=== PATIENT | female | born 1985 | race Caucasian/White ===

== ENCOUNTER 2022-06-03 03:55 | Emergency (ER) | payer SELFPAY ==
[~2022-06-03] VITALS: Ht 165.1 cm; Wt 77.1 kg
[2022-06-03 03:58] VITALS: BP 144/98
--- NOTE | 2022-06-03 04:02 | NUR ---
Dr. Cheng examining patient.
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
--- NOTE | 2022-06-03 04:09 | NUR ---
[place] [employer] at bedside.
[2022-06-03] MEDS ORDERED: KETOROLAC 60 MG/2 ML VIAL IM ONE (04:10)
--- NOTE | 2022-06-03 04:18 | NUR ---
Patient taken to CT scan via wheel chair.
--- NOTE | 2022-06-03 04:35 | NUR ---
PT BACK FROM CT
--- NOTE | 2022-06-03 04:37 | NUR ---
PT SISTER YONIS [phone]
[2022-06-03] MEDS ORDERED: NAPR-54 PO (04:50)
[2022-06-03 05:35] VITALS: BP 140/96
--- NOTE | 2022-06-03 05:35 | NUR ---
Patient discharged with v/s stable. Written and verbal after care instructions given and explained. Patient alert, oriented and verbalized understanding of instructions. Ambulatory with steady gait. All questions addressed prior to discharge. ID band removed. Patient advised to follow up with PMD. Rx of NAPROSYN given. Opportunity to ask questions provided and answered.
== END 2022-06-03 05:35 | disposition home or self-care (01) ==
LOC: MED 03:55
DX: S00.83XA Contusion of other part of head, initial encounter (principal); R11.0 Nausea; Z79.899 Other long term (current) drug therapy; Y04.2XXA Assault by strike against or bumped into by another person, initial encounter; Y93.89 Activity, other specified; Y92.89 Other specified places as the place of occurrence of the external cause; Y99.8 Other external cause status
CPT/HCPCS: 70450; 70486; 96372; 99284; J1885

== ENCOUNTER 2022-07-08 08:35 | Emergency (ER) | payer SELFPAY ==
[~2022-07-08] VITALS: Ht 167.6 cm; Wt 76.7 kg
[~2022-07-08 08:35] MED LIST: NAPR-54 PO
[2022-07-08 08:43] VITALS: BP 129/77
[2022-07-08 09:21] LABS: BASOPHILS % (AUTO) 0.6 % (0.0-2.0); EOSINOPHILS # (AUTO) 0.1 K/uL (0-0.4); EOSINOPHILS % (AUTO) 1.3 % (0.0-4.0); HEMATOCRIT 35.9 % (36-48); HEMOGLOBIN 12.2 g/dL (12.0-16.0); LYMPHOCYTES # (AUTO) 1.6 K/uL (2.5-16.5); LYMPHOCYTES % (AUTO) 23.6 % (20.5-51.1); MEAN CORPUSCULAR HEMOGLOBIN 28 pg (27-31); MEAN CORPUSCULAR HGB CONC 34 g/dL (33-37); MEAN CORPUSCULAR VOLUME 83.2 fL (80-94); MONOCYTES # (AUTO) 0.3 K/uL (0.8-1.0); NEUTROPHILS # (AUTO) 4.6 K/uL (1.8-7.7); NEUTROPHILS % (AUTO) 69.5 % (42.2-75.2); PLATELET COUNT (AUTO) 234 K/uL (140-450); RED BLOOD CELL COUNT(AUTO) 4.32 MIL/uL (4.20-5.40); RED CELL DISTRIBUTION WIDTH 14.4 % (11.6-13.7); WHITE BLOOD COUNT (AUTO) 6.7 K/uL (4.8-10.8)
[2022-07-08 09:21] LABS: APPEARANCE,URINE SL CLOUDY (CLEAR); BILIRUBIN,URINE NEGATIVE (NEGATIVE); BLOOD, URINE 3+ (NEGATIVE); COLOR,URINE AMBER (YELLOW); LEUKOCYTE ESTERASE ,URINE TRACE (NEGATIVE); NITRITE, URINE POSITIVE (NEGATIVE); PH,URINE 5.5 (5.0-9.0); UGLUCOSE NEGATIVE (NEGATIVE)
[2022-07-08 09:39] LABS: RBC,URINE 11-20 (MOD) /HPF (0-5)
[2022-07-08 09:40] LABS: OTHER CASTS, URINE None Seen /LPF (None Seen)
[2022-07-08] MEDS ORDERED: cephALEXin 500 MG CAP PO ONE (10:15)
[2022-07-08] MEDS ORDERED: PNV1TABL5 PO (12:53)
[2022-07-08] MEDS ORDERED: CEPH-588 PO (12:53)
[2022-07-08 15:05] VITALS: BP 119/77
== END 2022-07-08 15:05 | disposition home or self-care (01) ==
LOC: MED 08:35
DX: O20.0 Threatened abortion (principal); O23.41 Unspecified infection of urinary tract in pregnancy, first trimester; O26.891 Other specified pregnancy related conditions, first trimester; Z79.899 Other long term (current) drug therapy; Z3A.01 Less than 8 weeks gestation of pregnancy
CPT/HCPCS: 36415; 76817; 81001; 81025; 84702; 85025; 86886; 86900; 86901; 87086; 99284; J2790; Q0092